=== PATIENT | male | born 1970 | race African-American/Black ===

== ENCOUNTER 2022-03-17 21:11 | Emergency (ER) | payer MEDICAID ==
[~2022-03-17] VITALS: Ht 182.9 cm; Wt 91.0 kg
[2022-03-17] MEDS ORDERED: NALO4SPR BOTHNSTRLS (21:39)
[2022-03-17 21:47] VITALS: BP 148/98
== END 2022-03-17 21:45 | disposition left against medical advice (07) ==
LOC: ER 21:11
DX: T50.7X1A Poisoning by analeptics and opioid receptor antagonists, accidental (unintentional), initial encounter (principal); F16.10 Hallucinogen abuse, uncomplicated; I10 Essential (primary) hypertension; Z86.73 Personal history of transient ischemic attack (TIA), and cerebral infarction without residual deficits; F17.290 Nicotine dependence, other tobacco product, uncomplicated
CPT/HCPCS: 99283

== ENCOUNTER 2023-08-01 10:22 | Emergency (ER) | payer MEDICAID, OTHER ==
[~2023-08-01] VITALS: Ht 195.6 cm; Wt 68.0 kg
[~2023-08-01 10:22] MED LIST: NALO4SPR BOTHNSTRLS
[2023-08-01 10:27] VITALS: O2SAT 98
[2023-08-01 10:52] LABS: BASOPHILS % 0.3 % (0.0-2.0); DIFFERENTIAL COMMENT 0; EOSINOPHILS % 1.4 % (0.0-5.0); HEMATOCRIT. 47.5 % (42.0-52.0); HEMOGLOBIN. 15.6 g/dL (14.0-18.0); LYMPHOCYTES % 44.3 % (20.0-50.0); MEAN CORPUSCULAR HEMOGLOBIN 33.5 pg (28.0-32.0); MEAN CORPUSCULAR HGB CONC 32.8 g/dL (31.0-37.0); MEAN CORPUSCULAR VOLUME 102.2 fL (80.0-94.0); MONOCYTES % 4.7 % (2.0-8.0); NEUTROPHILS % 49.3 % (40.0-76.0); PLATELET 139 x1000/uL (130-400); RED BLOOD CELL COUNT 4.65 mill/uL (4.7-6.1); WHITE BLOOD COUNT 10.3 x1000/uL (4.5-11.0)
[2023-08-01 11:02] LABS: CHLORIDE 109 mEq/L (98-107); INDEX HEMOLYSI 5 (1-3); INDEX ICTERIC 1 (1-4); INDEX LIPEMIC 1 (1-3); SODIUM 139 mEq/L (136-145)
[2023-08-01 11:12] LABS: ALANINE AMINOTRANSFERASE 30 IU/L (13-61); ALBUMIN 3.7 g/dL (3.4-5.0); ASPARTATE AMINOTRANSFERASE 45 IU/L (15-37); BILIRUBIN TOTAL 0.8 mg/dL (0.1-1.0); CALCIUM 8.7 mg/dL (8.5-10.1); CARBON DIOXIDE 19 mEq/L (21-32); CREATININE 1.2 mg/dL (0.6-1.3); GLUCOSE 181 mg/dL (70-105); PROTEIN TOTAL 7.7 g/dL (6.0-8.3); TROPONIN I HIGH SENSITIVITY 70 ng/L (<78); UREA NITROGEN BLOOD 22 mg/dL (7-21)
[2023-08-01] MEDS ORDERED: NOREPINEPHRINE 8MG/250ML PMX 250 ML IV SCH (11:15)
[2023-08-01 11:16] LABS: POTASSIUM 4.3 mEq/L (3.5-5.1)
[2023-08-01 11:20] LABS: LACTIC ACID 6.9 mmol/L (0.4-2.0)
[2023-08-01 12:17] VITALS: TEMP 98.4
[2023-08-01 12:45] LABS: INR 1.2; PROTHROMBIN TIME 12.9 sec (9.6-11.0)
[2023-08-01 13:07] LABS: TROPONIN I HIGH SENSITIVITY 170 ng/L (<78)
[2023-08-01 13:48] LABS: CLARITY URINE TURBID (CLEAR); COLOR URINE YELLOW (YELLOW); GLUCOSE URINE 1+ (NEGATIVE); KETONES URINE NEGATIVE (NEGATIVE); LEUKOCYTE ESTERASE URINE 1+ (NEGATIVE); NITRITE URINE NEGATIVE (NEGATIVE); OCCULT BLOOD URINE TRACE (NEGATIVE); PH URINE 5.5 (4.5-8.0); PROTEIN URINE 3+ (NEGATIVE); SPECIFIC GRAVITY URINE 1.017 (1.005-1.030)
[2023-08-01 14:06] LABS: SQUAMOUS EPITHELIAL CELL URINE 3+ /lpf (RARE/1+)
[2023-08-01 14:08] LABS: BACTERIA URINE 3+
[2023-08-01 14:35] VITALS: BP 156/110; PULSE 118; RESP 16
[2023-08-02 15:19] LABS: *AMPHETAMINES SCREEN URINE NEGATIVE (NEGATIVE); *BARBITURATES SCREEN URINE NEGATIVE (NEGATIVE); *BENZODIAZEPINES SCREEN URINE NEGATIVE (NEGATIVE); *COCAINE SCREEN URINE NEGATIVE (NEGATIVE); CANNABINOID URINE SCREEN PRESUMTIVE POSITIVE (NEGATIVE); ECSTASY MDMA SCREEN URINE NEGATIVE (NEGATIVE); OPIATES URINE SCREEN NEGATIVE (NEGATIVE); PHENCYCLIDINE URINE SCREEN PRESUMTIVE POSITIVE (NEGATIVE)
[2023-08-02 15:40] LABS: METHADONE URINE SCREEN INVALID (NEGATIVE)
== END 2023-08-01 16:23 ==
LOC: ER 10:22
DX: I95.9 Hypotension, unspecified (principal); I24.9 Acute ischemic heart disease, unspecified; Q67.5 Congenital deformity of spine; F15.90 Other stimulant use, unspecified, uncomplicated; Z86.73 Personal history of transient ischemic attack (TIA), and cerebral infarction without residual deficits
CPT/HCPCS: 80053; 80305; 81003; 83605; 83690; 85025; 85610; 84484; 36415; 70450; 74176; 99285; J3490; Z7610 ×3